=== PATIENT | female | born 1980 | race Hispanic/Latino ===

== ENCOUNTER 2018-10-02 07:18 | Emergency (ER) | payer OTHER, SELFPAY ==
[2018-10-02] MEDS ORDERED: Dexamethasone 10 MG/ML VIAL ONE (09:51)
== END 2018-10-02 09:58 | disposition home or self-care (01) ==
LOC: ERS 07:18
DX: J06.9 Acute upper respiratory infection, unspecified (principal); E11.9 Type 2 diabetes mellitus without complications; Z79.4 Long term (current) use of insulin
CPT/HCPCS: 99283; J1100

== ENCOUNTER 2019-03-18 20:24 | Emergency (ER) | payer SELFPAY ==
[2019-03-18] MEDS ORDERED: Diazepam 5 MG TAB ONE (21:13)
[2019-03-18] MEDS ORDERED: Ketorolac Tromethamine 30 MG/ML VIAL ONE (21:13)
== END 2019-03-18 21:38 | disposition home or self-care (01) ==
LOC: ERS 20:24
DX: M62.830 Muscle spasm of back (principal); E11.9 Type 2 diabetes mellitus without complications; Z79.4 Long term (current) use of insulin
CPT/HCPCS: 96372; 99283; J1885

== ENCOUNTER 2019-05-25 14:59 | Emergency (ER) | payer SELFPAY ==
[2019-05-25] MEDS ORDERED: Dextrose 50% Abboject 50 ML SYRINGE ONE (15:21)
== END 2019-05-25 16:55 | disposition home or self-care (01) ==
LOC: ERS 14:59
DX: E11.649 Type 2 diabetes mellitus with hypoglycemia without coma (principal); V89.2XXA Person injured in unspecified motor-vehicle accident, traffic, initial encounter; Z79.4 Long term (current) use of insulin
CPT/HCPCS: 36416; 96374